=== PATIENT | female | born 2005 | race Caucasian/White ===

== ENCOUNTER 2023-08-01 21:37 | Emergency (ER) | payer OTHER ==
[~2023-08-01] VITALS: Ht 167.6 cm; Wt 72.3 kg
[2023-08-01 22:08] LABS: HEMATOCRIT 42.9 % (36.0-47.0); HEMOGLOBIN 14.3 g/dl (12.0-15.5); MEAN CORPUSCULAR HGB CONC 33.3 g/dl (32.0-36.5); PLATELET COUNT, AUTOMATED 317 10^3/uL (150-450); RED BLOOD COUNT 5.11 10^6/uL (4.00-5.40); WHITE BLOOD COUNT 11.4 10^3/uL (4.0-10.0)
[2023-08-01 22:34] LABS: AMPHETAMINES LEVEL URINE NEGATIVE (NEGATIVE); BARBITURATES URINE NEGATIVE (NEGATIVE); BENZODIAZEPINES URINE NEGATIVE (NEGATIVE); CANNABINOIDS URINE NEGATIVE (NEGATIVE); COCAINE METABOLITE URINE NEGATIVE (NEGATIVE); METHADONE URINE NEGATIVE (NEGATIVE); OPIATES URINE NEGATIVE (NEGATIVE); PHENCYCLIDINE URINE NEGATIVE (NEGATIVE)
[2023-08-01 22:36] LABS: ETHYL ALCOHOL (ETHANOL) < 0.003 % (0.000-0.010)
[2023-08-01 22:37] LABS: SALICYLATE LEVEL < 3.0 MG/DL (<30)
[2023-08-01 22:38] LABS: ALBUMIN 4.2 G/DL (3.2-5.2); ALKALINE PHOSPHATASE 94 U/L (46-116); ALT/SGPT 30 U/L (7.0-40); AST/SGOT 15 U/L (<34); BILIRUBIN,DIRECT 0.2 MG/DL (<0.4); BILIRUBIN,TOTAL 0.7 MG/DL (0.3-1.2); BLOOD UREA NITROGEN 7 MG/DL (9-23); CALCIUM LEVEL 9.7 MG/DL (8.5-10.1); CARBON DIOXIDE LEVEL 27 MMOL/L (20-31); CHLORIDE LEVEL 109 MMOL/L (98-107); CREATININE FOR GFR 0.59 MG/DL (0.55-1.30); GLUCOSE, FASTING 85 MG/DL (60-100); SODIUM LEVEL 142 MMOL/L (136-145); TOTAL PROTEIN 7.4 G/DL (5.7-8.2)
[2023-08-01 22:39] LABS: THYROID STIMULATING HORMONE 0.779 uIU/ML (0.48-4.17)
[2023-08-01] MEDS ORDERED: ALBU8.5H INH (23:10)
[2023-08-01] MEDS ORDERED: HOME MED LIST COMPLETE! XX SCH (23:10)
[2023-08-02 01:06] VITALS: BP 112/56; TEMP 98; O2SAT 99
== END 2023-08-02 01:05 | disposition home or self-care (01) ==
LOC: M ED 21:37
DX: Z04.6 Encounter for general psychiatric examination, requested by authority (principal); F32.A Depression, unspecified; R45.851 Suicidal ideations; F17.200 Nicotine dependence, unspecified, uncomplicated; Z91.013 Allergy to seafood; Z79.52 Long term (current) use of systemic steroids

== ENCOUNTER 2024-04-15 12:40 | Emergency (ER) | payer MEDICAID, OTHER, SELFPAY ==
[~2024-04-15] VITALS: Ht 170.2 cm; Wt 86.2 kg
[~2024-04-15 12:40] MED LIST: ALBU8.5H INH
[2024-04-15 12:42] VITALS: BP 136/76; TEMP 98.4; O2SAT 100
[2024-04-15] MEDS ORDERED: ZOLO100T PO (12:55)
[2024-04-15] MEDS ORDERED: ABIL30TA4 PO (12:55)
[2024-04-15] MEDS ORDERED: ENSK1TAB3 (12:55)
== END 2024-04-15 13:57 | disposition left against medical advice (07) ==
LOC: M ED 12:40
DX: Z53.21 Procedure and treatment not carried out due to patient leaving prior to being seen by health care provider (principal)

== ENCOUNTER 2024-04-30 22:48 | Emergency (ER) | payer MEDICAID ==
[~2024-04-30] VITALS: Ht 170.2 cm; Wt 84.1 kg
[~2024-04-30 22:48] MED LIST changes: +ABIL30TA4 PO; +ENSK1TAB3; +ZOLO100T PO
[2024-04-30 22:52] VITALS: BP 120/68; TEMP 97.1; O2SAT 98
== END 2024-05-01 00:05 | disposition left against medical advice (07) ==
LOC: M ED 22:48
DX: Z53.21 Procedure and treatment not carried out due to patient leaving prior to being seen by health care provider (principal)

== ENCOUNTER 2024-05-01 06:28 | Emergency (ER) | payer MEDICAID ==
[~2024-05-01] VITALS: Ht 170.2 cm; Wt 84.5 kg
[2024-05-01 07:21] VITALS: BP 115/61; TEMP 98.3; O2SAT 100
== END 2024-05-01 07:22 | disposition home or self-care (01) ==
LOC: M ED 06:28
DX: T19.2XXA Foreign body in vulva and vagina, initial encounter (principal); R10.2 Pelvic and perineal pain; F43.10 Post-traumatic stress disorder, unspecified; F31.9 Bipolar disorder, unspecified; Z88.0 Allergy status to penicillin; Z91.013 Allergy to seafood; Z79.899 Other long term (current) drug therapy

== ENCOUNTER → 2024-06-14 | Outpatient (REF) | LOC: M EMP 08:34 | PROVIDERS: ATTEND Family Medicine | DX: Z11.52 Encounter for screening for COVID-19 (principal) ==

== ENCOUNTER → 2024-10-07 | Outpatient (REF) ==
[~2024-10-07] MED LIST changes: +CEPH500C PO; +FLUC150T9 PO; +PRED20TA PO
[2024-10-07 15:52] LABS: SOFIA COVID ANTIGEN NEGATIVE (NEGATIVE)
== END ==
LOC: M EMP 15:04
PROVIDERS: ATTEND Family Medicine
DX: Z11.52 Encounter for screening for COVID-19 (principal)